=== PATIENT | female | born 1960 | race Caucasian/White ===

== ENCOUNTER 2019-06-10 00:10 | Emergency (ER) | payer MEDICARE, OTHER ==
[~2019-06-10] VITALS: Ht 167.6 cm; Wt 149.7 kg
[~2019-06-10 00:10] MED LIST: ACET500; ALBU.083IS IH; ALBU90OI61 INH; ASPI81CH PO; ATOR40TA PO; BUDE6HFA INH; BUPR75 PO; DOC250 PO; EZET10 PO; HYDACE5 PO; HYDCHL25; IBUP200; MELO7.5 PO; MOXI400; NISO10ER; NITR.4SL SL; OMEPRAZOLE MAGN20 MG PO; PARO10 PO; PARO20 PO; PRED20 PO; Percocet 10-321 EACH PO; RAMI5 PO; SIMV10 PO; TIOT18 INH; Valium5 MG PO
[2019-06-10] MEDS ORDERED: VENL150ER PO (01:29)
[2019-06-10] MEDS ORDERED: Vibramycin100 MG PO (02:38)
== END 2019-06-10 02:58 | disposition home or self-care (01) ==
LOC: ER 00:10
DX: L03.115 Cellulitis of right lower limb (principal); Z88.0 Allergy status to penicillin; Z88.8 Allergy status to other drugs, medicaments and biological substances; Z79.899 Other long term (current) drug therapy; Z79.82 Long term (current) use of aspirin; I10 Essential (primary) hypertension; J44.9 Chronic obstructive pulmonary disease, unspecified; F32.9 Major depressive disorder, single episode, unspecified; K21.9 Gastro-esophageal reflux disease without esophagitis; E78.00 Pure hypercholesterolemia, unspecified; Z87.891 Personal history of nicotine dependence
CPT/HCPCS: 99282

== ENCOUNTER 2019-06-12 13:55 | Emergency (ER) | payer MEDICARE, OTHER ==
[~2019-06-12] VITALS: Ht 167.6 cm; Wt 149.7 kg
[~2019-06-12 13:55] MED LIST changes: +VENL150ER PO; +Vibramycin100 MG PO
[2019-06-12] MEDS ORDERED: LEVSOD75 PO (14:46)
[2019-06-12 15:05] LABS: BASOPHILS ABSOLUTE AUTO 0.03 K/mm3 (0.00-0.23); BASOPHILS PERCENT AUTO 0 % (0-2); EOSINOPHILS ABSOLUTE AUTO 0.43 K/mm3 (0.00-0.68); EOSINOPHILS PERCENT AUTO 4 % (0-6); Hematocrit 40.6 % (33.0-51.0); Hemoglobin 12.6 g/dL (11.5-16.0); IMMATURE GRAN ABSOLUTE AUTO 0.03 K/mm3 (0.00-0.10); IMMATURE GRAN PERCENT AUTO 0 % (0-1); LYMPHOCYTES ABSOLUTE AUTO 2.07 K/mm3 (0.84-5.20); LYMPHOCYTES PERCENT AUTO 21 % (21-46); MONOCYTES ABSOLUTE AUTO 0.69 K/mm3 (0.16-1.47); MONOCYTES PERCENT AUTO 7 % (4-13); Mean Corpuscular HGB 27.8 pg (26.0-34.0); Mean Corpuscular Volume 89 fL (80-100); Mean Platelet Volume 10.5 fL (9.1-12.4); NEUTROPHILS ABSOLUTE AUTO 6.59 K/mm3 (1.96-9.15); NEUTROPHILS PERCENT AUTO 67 % (41-73); Platelet Count 283 K/mm3 (150-400); RDW Coefficient Variation 16.6 % (11.7-14.2); RDW Standard Deviation 54.7 fL (35.1-46.3); Red Blood Cell Count 4.54 M/mm3 (3.80-5.20); White Blood Cell Count 9.84 K/mm3 (4.00-11.30)
[2019-06-12 15:18] LABS: Alanine Aminotransfer (ALT/SGP 31 U/L (12-78); Albumin, Blood 2.6 g/dL (3.4-5.0); Albumin/Globulin Ratio 0.6 (0.8-1.8); Alk Phos 126 U/L (50-136); Anion Gap 5 mmol/L (6-16); Aspartate Aminotrans (AST/SGOT 24 U/L (12-37); Bilirubin, Total 0.4 mg/dL (0.1-1.0); Blood Urea Nitrogen 17 mg/dL (8-24); Bun/Creatinine Ratio 19.8 (12.0-20.0); CO2, Blood 26 mmol/L (21-32); Calcium, Blood 8.9 mg/dL (8.5-10.1); Chloride, Blood 105 mmol/L (98-108); Creatinine, Blood 0.86 mg/dL (0.40-1.00); Globulin, Blood 4.3 g/dL (2.2-4.0); Glomerular Filtration Rate >60 (60-); Glucose, Blood 100 mg/dL (70-99); Potassium, Blood 4.4 mmol/L (3.5-5.5); Sodium, Blood 136 mmol/L (136-145); Total Protein, Blood 6.9 g/dL (6.4-8.2)
== END 2019-06-12 17:07 | disposition home or self-care (01) ==
LOC: ER 13:55
PROVIDERS: Emergency Medicine
DX: L02.415 Cutaneous abscess of right lower limb (principal); L03.115 Cellulitis of right lower limb; J44.9 Chronic obstructive pulmonary disease, unspecified; I10 Essential (primary) hypertension; E11.9 Type 2 diabetes mellitus without complications; F32.9 Major depressive disorder, single episode, unspecified; E78.5 Hyperlipidemia, unspecified; K21.9 Gastro-esophageal reflux disease without esophagitis; Z87.891 Personal history of nicotine dependence; Z88.0 Allergy status to penicillin; Z88.8 Allergy status to other drugs, medicaments and biological substances; Z79.899 Other long term (current) drug therapy; Z79.82 Long term (current) use of aspirin
CPT/HCPCS: 10061; 36415; 76882; 80053; 85025; 87070; 87075; 87205; 96365-59; 96366-59; 96375-59; 99284-25; J1170; J2405; J3370; J7050

== ENCOUNTER → 2019-11-04 | Outpatient (CLI) | payer MEDICARE, OTHER ==
[~2019-11-04] MED LIST changes: +LEVSOD75 PO
[2019-11-08 15:07] LABS: HPV 16 Negative (Negative); HPV 18 Negative (Negative); HPV OTHER HR TYPES Negative (Negative)
== END | disposition home or self-care (01) ==
LOC: LAB SHORT 17:25 → LAB 17:25
PROVIDERS: Nurse Practitioner Family
DX: Z12.4 Encounter for screening for malignant neoplasm of cervix (principal)
CPT/HCPCS: 87624; G0123

== ENCOUNTER → 2020-07-20 | Outpatient (CLI) | payer MEDICARE, OTHER ==
[2020-07-24 15:09] LABS: HPV 16 Negative (Negative); HPV 18 Negative (Negative); HPV OTHER HR TYPES Negative (Negative)
== END ==
LOC: LAB SHORT 12:45 → LAB 12:45
PROVIDERS: Nurse Practitioner Family
DX: Z00.00 Encounter for general adult medical examination without abnormal findings (principal)
CPT/HCPCS: 87624; G0123

== ENCOUNTER → 2021-03-05 | Outpatient (CLI) | payer MEDICARE | END | disposition home or self-care (01) | LOC: LAB SHORT 08:32 → LAB 08:32 | DX: L72.0 Epidermal cyst (principal) | CPT/HCPCS: 88304 ==

== ENCOUNTER → 2022-02-04 | Outpatient (CLI) | payer MEDICARE | END | disposition home or self-care (01) | LOC: LAB SHORT 16:00 | DX: R30.0 Dysuria (principal) | CPT/HCPCS: 87077; 87086; 87186 ==

== ENCOUNTER → 2022-03-18 | Outpatient (CLI) | payer MEDICARE | LOC: LAB SHORT 15:13 → PLD 15:13 | DX: L91.8 Other hypertrophic disorders of the skin (principal); R58 Hemorrhage, not elsewhere classified; R20.8 Other disturbances of skin sensation | CPT/HCPCS: 88305 ==

== ENCOUNTER → 2024-03-02 | Outpatient (CLI) | payer MEDICARE | LOC: LAB SHORT 14:53 → LAB 14:53 | DX: R35.0 Frequency of micturition (principal) | CPT/HCPCS: 87077; 87086; 87186 ==

== ENCOUNTER → 2024-08-30 | Outpatient (CLI) | payer MEDICARE ==
[2024-09-02 19:34] LABS: HEPATITIS C AB CIA INTERP Negative (Negative); HEPATITIS C ANTIBODY CIA INDEX <0.02 IV
== END ==
LOC: LAB 16:33 → LAB SHORT 16:33
PROVIDERS: Physician Assistant
DX: R30.0 Dysuria (principal)
CPT/HCPCS: 86803; 87086

== ENCOUNTER → 2024-09-16 | Outpatient (CLI) | payer MEDICARE | LOC: LAB SHORT 13:56 → LAB 13:56 | DX: R31.9 Hematuria, unspecified (principal) | CPT/HCPCS: 87077; 87086; 87186 ==

== ENCOUNTER 2024-12-21 06:08 | Day surgery (SDC) | payer MEDICARE ==
[~2024-12-21] VITALS: Ht 165.1 cm; Wt 134.6 kg
[2024-12-21] MEDS ORDERED: NS 50 ML IV ONE (06:29)
[2024-12-21] MEDS ORDERED: Lactated Ringer's 1,000 ML IV ONE ×2 (06:29→07:02)
[2024-12-21] MEDS ORDERED: CeFAZolin Sodium 3,000 MG VIAL ONE (06:29)
[2024-12-21] MEDS ORDERED: FentaNYL Citrate 50 MCG/ML 2 ML Injection ONE ×2 (06:32→10:07)
[2024-12-21] MEDS ORDERED: Ondansetron HCl 2 MG / ML 2ML Vial ONE (06:32)
[2024-12-21] MEDS ORDERED: propofoL 20 ML IV ONE (06:32)
[2024-12-21] MEDS ORDERED: Midazolam HCl 1MG / ML 2ML Vial ONE (06:32)
[2024-12-21] MEDS ORDERED: Dexamethasone Sod Phos 10 MG/ML 1ML VIAL ONE (06:32)
[2024-12-21] MEDS ORDERED: LYRICA75 M1 (06:38)
[2024-12-21] MEDS ORDERED: PREG75 PO (06:39)
[2024-12-21] MEDS ORDERED: METO25ER PO (06:40)
[2024-12-21] MEDS ORDERED: ASPI325 PO (06:41)
[2024-12-21] MEDS ORDERED: MULVITA PO (06:43)
[2024-12-21] MEDS ORDERED: SOLI5 PO (06:44)
[2024-12-21] MEDS ORDERED: STOOL SOFTENER (06:45)
[2024-12-21] MEDS ORDERED: ARED (06:46)
[2024-12-21] MEDS ORDERED: AZO D-MANNOSE500 M1 PO (06:47)
[2024-12-21] MEDS ORDERED: ESTRADIOL (06:48)
[2024-12-21] MEDS ORDERED: Lidocaine 1%-Epineph 1:200000 30 ML SDV ONE (06:55)
--- NOTE | 2024-12-21 07:04 | NUR ---
12/21/24 0704 Fredis Valdez SCRATCHES AND ABRASIONS ON PT'S RIGHT HAND NOTED
[2024-12-21] MEDS ORDERED: Sugammadex Sodium 200 MG/2ML SDV (100 MG/ML) ONE (07:18)
[2024-12-21] MEDS ORDERED: Ketorolac Tromethamine 30mg Vial ONE (07:25)
[2024-12-21] MEDS ORDERED: ePHEDrine Sulfate 50 MG/ML 1ML Injection ONE (07:44)
--- NOTE | 2024-12-21 07:51 | NUR ---
12/21/24 0751 Jorje Trujillo BRUISED/RED AREAS ON OPERATIVE FOREARM, NOTHING OPEN. DR FUENTES AWARE.
[2024-12-21] MEDS ORDERED: HYDROmorphone HCl/Pf 1MG SYR ONE (08:00)
--- NOTE | 2024-12-21 09:49 | NUR ---
12/21/24 0949 Lianna Humphrey ARM, ICE PACK APPLIED
[2024-12-21] MEDS ORDERED: OxyCODONE HCL 5 MG TAB ONE (10:20)
--- NOTE | 2024-12-21 10:34 | NUR ---
12/21/24 1034 Lianna Humphrey PATIENT ASLEEP UPON ARRIVAL TO ROOM, PT REPORTS IV PAIN MEDICATION DID NOT HELP. REPORTS PAIN IS 8/10. STATES "MY FINGERS ARE NUMB". PATIENT SITTING IN RECLINER, TOLERATING ORAL FLUIDS AND SNACKS WELL. ORAL PAIN MEDICATION GIVEN. NO ACUTE DISTRESS NOTED AT THIS TIME.
[2024-12-21 10:55] VITALS: BP 132/64
== END 2024-12-21 11:00 | disposition home or self-care (01) ==
LOC: ORSCSDS 06:08
PROVIDERS: Orthopaedic Surgery
PROC: 0LN70ZZ Release Right Hand Tendon, Open Approach (ICD-10-PCS; principal; 2024-12-21 07:30)
PROC: 0RQS0ZZ Repair Right Carpometacarpal Joint, Open Approach (ICD-10-PCS; principal; 2024-12-21 07:30)
PROC: 01N54ZZ Release Median Nerve, Percutaneous Endoscopic Approach (ICD-10-PCS; principal; 2024-12-21 07:30)
DX: M18.11 Unilateral primary osteoarthritis of first carpometacarpal joint, right hand (principal); M65.30 Trigger finger, unspecified finger; G56.01 Carpal tunnel syndrome, right upper limb; I10 Essential (primary) hypertension; J44.89 Other specified chronic obstructive pulmonary disease; Z87.891 Personal history of nicotine dependence; E11.9 Type 2 diabetes mellitus without complications; E03.9 Hypothyroidism, unspecified; E66.01 Morbid (severe) obesity due to excess calories; Z68.42 Body mass index [BMI] 45.0-49.9, adult; I69.354 Hemiplegia and hemiparesis following cerebral infarction affecting left non-dominant side; Z79.899 Other long term (current) drug therapy; Z79.82 Long term (current) use of aspirin
CPT/HCPCS: 82947; A9270; C1713; J0690; J1100; J1171; J1885; J2250; J2405; J2704; J3010; J7120